=== PATIENT | male | born 1935 | race Caucasian/White ===

== ENCOUNTER 2022-05-07 14:17 | Emergency (ER) | payer MEDICARE, OTHER ==
[~2022-05-07] VITALS: Ht 180.3 cm; Wt 78.8 kg
[2022-05-07] MEDS ORDERED: CLOP75TA2 (14:34)
[2022-05-07] MEDS ORDERED: NITR0.4S14 (14:34)
[2022-05-07] MEDS ORDERED: ASPI81CH33 PO (14:34)
[2022-05-07] MEDS ORDERED: ATOR80TA59 (14:34)
[2022-05-07 17:25] LABS: BASO % 0.3 % (0.0-1.0); HEMATOCRIT 39.6 % (42.0-52.0); LYMPH # 0.4 10^3/uL (1.5-5.0); LYMPH % 3.7 % (24.0-44.0); MEAN CORPUSCULAR HEMOGLOBIN 30.8 pg (27.0-33.0); MEAN CORPUSCULAR HGB CONC 32.8 g/dl (32.0-36.5); MEAN CORPUSCULAR VOLUME 93.8 fl (80.0-96.0); MONO # 0.4 10^3/uL (0.0-0.8); MONO % 4.3 % (2.0-8.0); NEUTROPHILS # 8.9 10^3/uL (1.5-8.5); NEUTROPHILS % 91.3 % (36.0-66.0); PLATELET COUNT, AUTOMATED 213 10^3/uL (150-450); RED BLOOD COUNT 4.22 10^6/uL (4.30-6.10); WHITE BLOOD COUNT 9.7 10^3/uL (4.0-10.0)
[2022-05-07 17:49] LABS: ALBUMIN 4.2 GM/DL (3.2-5.2); ALT/SGPT 51 U/L (12-78); BILIRUBIN,DIRECT 0.2 MG/DL (0.0-0.2); BILIRUBIN,TOTAL 0.5 MG/DL (0.2-1.0); BLOOD UREA NITROGEN 16 MG/DL (7-18); CALCIUM LEVEL 10.2 MG/DL (8.8-10.2); CARBON DIOXIDE LEVEL 28 MEQ/L (21-32); CHLORIDE LEVEL 104 MEQ/L (98-107); CREATININE FOR GFR 0.94 MG/DL (0.70-1.30); GLOMERULAR FILTRATION RATE > 60.0 (>35); GLUCOSE, FASTING 180 MG/DL (70-100); LIPASE 97 U/L (73-393); POTASSIUM SERUM 4.1 MEQ/L (3.5-5.1); SODIUM LEVEL 138 MEQ/L (136-145); TOTAL PROTEIN 7.8 GM/DL (6.4-8.2)
[2022-05-07] MEDS ORDERED: NS 1,000 ML IV ONE (19:25)
[2022-05-07] MEDS ORDERED: ONDANSETRON 4MG 2ML VIAL IV ONE ×2 (19:40→22:10)
[2022-05-07] MEDS ORDERED: PIPERACILLIN/TAZOBACTAM SOD 3.375 GM in D5W MINI-BAG PLUS 50 ML IV ONE (21:40)
[2022-05-07] MEDS: GASTROGRAFIN SOLUTION 30ML PO SCH ×2 (21:44→21:46)
[2022-05-07] MEDS ORDERED: ISOVUE-370 76% 100ML VIAL As Ordered ONE (22:38)
[2022-05-08] MEDS ORDERED: ACETAMINOPHEN 1000MG 100ML IV BTL (OFIRMEV) (J0131 PER 10MG) IV ONE (00:05)
[2022-05-08] MEDS ORDERED: NS 1,360 ML in IV 1 EA IV ONE (00:40)
[2022-05-08 00:56] LABS: NT-PRO BNP 228 PG/ML (<450)
[2022-05-08] MEDS ORDERED: PANTOPRAZOLE 40MG VIAL IV ONE ×2 (03:20→03:50)
[2022-05-08] MEDS ORDERED: NS 1,000 ML IV SCH (03:45)
[2022-05-08] MEDS ORDERED: ASPI-161 PO (04:00)
[2022-05-08] MEDS ORDERED: ATOR80TA59 PO (04:00)
[2022-05-08] MEDS ORDERED: NITR4TASL SL (04:00)
[2022-05-08] MEDS ORDERED: CLOP75TA2 PO (04:00)
[2022-05-08] MEDS ORDERED: DOCU100C16 PO (04:01)
[2022-05-08 04:10] LABS: ABG BASE EXCESS -3.3 (-2.0-2.0); ABG HCO3 18.5 MEQ/L (22.0-26.0); ABG O2 SATURATION 98.1 % (95.0-99.0); ABG PARTIAL PRESSURE CO2 24.9 mmHg (35.0-45.0); ABG PARTIAL PRESSURE O2 102.2 mmHg (75.0-100.0); ABG STANDARD HCO3 21.8 MEQ/L (22.0-26.0); ABG TOTAL CO2 19.3 MEQ/L (23.0-31.0); ABG pH (ARTERIAL) 7.489 UNITS (7.350-7.450)
[2022-05-08] MEDS ORDERED: HOME MED LIST COMPLETE! XX SCH (04:15)
[2022-05-08 04:44] LABS: HEMATOCRIT 36.1 % (42.0-52.0); HEMOGLOBIN 11.8 g/dl (13.5-17.5); MEAN CORPUSCULAR HEMOGLOBIN 30.5 pg (27.0-33.0); MEAN CORPUSCULAR HGB CONC 32.7 g/dl (32.0-36.5); MEAN CORPUSCULAR VOLUME 93.3 fl (80.0-96.0); RED BLOOD COUNT 3.87 10^6/uL (4.30-6.10); WHITE BLOOD COUNT 2.4 10^3/uL (4.0-10.0)
[2022-05-08 05:08] LABS: ALBUMIN 2.9 GM/DL (3.2-5.2); BILIRUBIN,TOTAL 0.7 MG/DL (0.2-1.0); CALCIUM LEVEL 8.8 MG/DL (8.8-10.2); CREATININE FOR GFR 2.1 MG/DL (0.70-1.30); GLOMERULAR FILTRATION RATE 32.1 (>35); POTASSIUM SERUM 4.2 MEQ/L (3.5-5.1); TOTAL PROTEIN 5.5 GM/DL (6.4-8.2)
[2022-05-08 05:12] LABS: CK-MB VALUE MASS 5.9 NG/ML (<3.6); MB/CK RELATIVE INDEX 2.08 (< OR =4)
[2022-05-08] MEDS ORDERED: HEPARIN DRIP 25,000 UNITS in IV 1 EA IV SCH (05:30)
[2022-05-08] MEDS ORDERED: NOREPINEPHRINE 4MG IN D5 250ML 4 MG in IV 1 EA IV SCH ×2 (06:05)
[2022-05-08 07:41] VITALS: BP 95/56
== END 2022-05-08 07:49 | disposition short-term general hospital (02) ==
LOC: M ED 14:17
DX: A41.9 Sepsis, unspecified organism (principal); I21.4 Non-ST elevation (NSTEMI) myocardial infarction; K56.609 Unspecified intestinal obstruction, unspecified as to partial versus complete obstruction; K92.2 Gastrointestinal hemorrhage, unspecified; N39.0 Urinary tract infection, site not specified; K44.9 Diaphragmatic hernia without obstruction or gangrene; J98.4 Other disorders of lung; I25.2 Old myocardial infarction; I10 Essential (primary) hypertension; E78.5 Hyperlipidemia, unspecified; K21.9 Gastro-esophageal reflux disease without esophagitis; C61 Malignant neoplasm of prostate; C67.9 Malignant neoplasm of bladder, unspecified; K59.00 Constipation, unspecified; Z87.442 Personal history of urinary calculi; Z79.01 Long term (current) use of anticoagulants; Z91.040 Latex allergy status; Z81.1 Family history of alcohol abuse and dependence; Z79.82 Long term (current) use of aspirin; Z79.899 Other long term (current) drug therapy
CPT/HCPCS: 36600; 70450; 71045; 74177; 80048; 80053; 80076; 81000; 81015; 82550; 82553; 82803; 83605; 83690; 83880; 84484; 85025; 85027; 87040; 87077; 87186; 87486; 87581; 87633; 87798; 93005; 96365; 96366; 96375; 99285; C9113; J0131; J2405; J2543; Q9963; Q9967